=== PATIENT | female | born 1995 | race Caucasian/White ===

== ENCOUNTER → 2016-12-05 | Outpatient (REF) | payer BC, OTHER | LOC: M LAB REF 13:20 | PROVIDERS: ATTEND Advanced Practice Midwife | DX: Z34.03 Encounter for supervision of normal first pregnancy, third trimester (principal) ==

== ENCOUNTER 2016-12-27 02:05 | Inpatient (IN) | payer BC, OTHER ==
[2016-12-27] VITALS (41 sets, daily range): BP systolic 89–142; BP diastolic 50–93
[~2016-12-27] VITALS: Ht 160 cm; Wt 72.0 kg
[2016-12-27] MEDS ORDERED: LR 1,000 ML IV SCH (02:46)
[2016-12-27 02:59] LABS: MEAN CORPUSCULAR HEMOGLOBIN 30.1 pg (27.0-33.0); MEAN CORPUSCULAR HGB CONC 34.1 g/dl (32.0-36.5); MEAN CORPUSCULAR VOLUME 88.2 fl (80.0-96.0); RED CELL DISTRIBUTION WIDTH 13.3 % (11.5-14.5); WHITE BLOOD COUNT 18.3 K/mm3 (4.0-10.0)
[2016-12-27] MEDS ORDERED: FENTANYL 2MCG/ML ROPIVACAINE 0.2% NACL 250 ML CADD As Ordered ONE (03:02)
[2016-12-27] MEDS ORDERED: OXYTOCIN DRIP 30 UNITS in APPROPRIATE DILUENT 1 EA IV SCH ×2 (05:15→08:41)
[2016-12-27 07:10] LABS: CORD GAS ABE V -5.3; CORD GAS HCO3 V 21.4 MEQ/L; CORD GAS O2 SAT V 55.6 %; CORD GAS PCO2 V 45.5 mmHg; CORD GAS PH V 7.29 UNITS; CORD GAS PO2 V 24.3 mmHg; CORD GAS SBC V 18.9 MEQ/L; CORD GAS TCO2 V 22.8 MEQ/L
[2016-12-27 07:11] LABS: CORD GAS ABE A -8.3; CORD GAS HCO3 A 18.8 MEQ/L; CORD GAS O2 SAT A 43.3 %; CORD GAS PCO2 A 43.9 mmHg; CORD GAS PH A 7.249 UNITS; CORD GAS PO2 A 21.3 mmHg; CORD GAS SBC A 16.6 MEQ/L; CORD GAS TCO2 A 20.1 MEQ/L
--- NOTE | 2016-12-27 07:41 | HPE ---
DATE OF ADMISSION: 12/27/2016 REASON FOR ADMISSION: Labor. HISTORY OF PRESENT ILLNESS: This patient is a 21-year-old, 1, who presents at 39 weeks 5 days estimated gestational age by a first trimester ultrasound with complaints of contraction. She reports contractions started early during the night and has increased in intensity and frequency. She reports active movement. Denies any vaginal bleeding or leakage of fluid. Her course has been unremarkable. She initiated care in the first trimester and has been appropriate throughout. PAST MEDICAL HISTORY: None. PAST SURGICAL HISTORY: None. POST OBSTETRIC HISTORY: She is 1. MEDICATIONS: vitamins. ALLERGIES: She has no known drug allergies. PHYSICAL EXAMINATION: VITAL SIGNS: Stable. She is afebrile. She is a category I heart rate tracing with contractions on tocometer. GENERAL APPEARANCE: She is well appearing with no acute distress. LUNGS: Clear to auscultation bilaterally. CARDIOVASCULAR: Heart regular rate and rhythm. ABDOMEN: Soft. Gravid, nontender. Estimated weight 3500 grams. CERVICAL EXAM: She is 4 to 5 cm dilated, 100% effaced, -2 station. LABS: Blood type is A positive, antibody screen negative. Rubella immune, RPR nonreactive, hepatitis surface antigen is negative, HIV is negative, hepatitis C is nonreactive, Chlamydia and gonorrhea screens were negative. She had a normal 1-hour Glucola. She is GBS negative. ASSESSMENT: 1. This patient is a 21-year-old, 1, who presents at 39 weeks 5 days estimated gestational age for active labor. 2. Reassuring status. PLAN: 1. Admit to labor and delivery. CBC, RPR, type and screen. 2. The patient is a good candidate for an epidural. 3. Spontaneous vaginal delivery.
--- NOTE | 2016-12-27 07:54 | DN ---
DATE OF DELIVERY: 12/27/2016 TIME OF : 0644 SCORES: 9 and 9. GENDER: Male. WEIGHT: 7 pounds 13 ounces or 3550 grams. ANESTHESIA: Epidural. COUNTS: Five laparotomy sponges accounted for prior to and after delivery. Two sharps removed from the delivery field. CORD GASES: 7.24, 7.29 with base excesses of -8.3, -5.3. DELIVERY NOTE: On the December at 0644 Ms. Lopez a 21-year-old 1, now para 1 had a spontaneous vaginal delivery of a live born male infant. scores 9 and 9, weight 7 pounds 13 ounces at 3550 grams. Head was delivered CHAU over intact peritoneum followed by delivery of a right anterior shoulder, left posterior shoulder, and corpus. Cord was clamped times two and was cut by the father of the baby. The baby was handed to his mom with a good cry. Cord blood gas was obtained. Placenta was then drained and delivered grossly intact. A premix bas of 500 mL of normal saline with 30 units of Pitocin was then bolused along with uterine massage until the uterus was firm. Upon inspection the cervix, vagina, and perineum was grossly intact. Mom and baby recovering in stable condition. The couple decided to name their son, Jeremy.
[2016-12-27] MEDS ORDERED: diphenhydrAMINE INJ 50MG/ML VIAL (J1200) IV PRN (08:00)
[2016-12-27] MEDS ORDERED: REFRIGERATOR IV KEYS XX PRN (08:00)
[2016-12-27] MEDS ORDERED: LACTATED RINGER'S 1000 ML IV PRN (08:00)
[2016-12-27] MEDS ORDERED: EPIDURAL COMMENT XX SCH (08:00)
[2016-12-27] MEDS ORDERED: ePHEDrine SULFATE 25 MG/5 ML(5MG/ML) SYRINGE IV PRN (08:00)
[2016-12-27] MEDS ORDERED: EPIDURAL/PCA KEYS XX PRN (08:00)
[2016-12-27] MEDS ORDERED: FENTANYL/ROPIVACAINE/NACL CADD 250 ML EPIDURAL SCH (08:00)
[2016-12-27] MEDS ORDERED: ONDANSETRON 4MG/2ML VIAL (J2405) IV PRN (08:00)
[2016-12-27] MEDS ORDERED: NALOXONE INJ 0.4 MG/1 ML VIAL (J2310) IV PRN (08:00)
[2016-12-27] MEDS ORDERED: DOCUSATE SODIUM 100 MG CAP PO PRN (08:45)
[2016-12-27] MEDS ORDERED: MEASLES,MUMPS,RUBELLA VACCINE INJ (MMR-II) (90707) SC SCH (08:45)
[2016-12-27] MEDS ORDERED: RHOGAM 300 MCG (1500 IU) INJ (J2790) IM SCH (08:45)
[2016-12-27] MEDS ORDERED: METHYLERGONOVINE MALEATE 0.2 MG TAB PO PRN (08:45)
[2016-12-27] MEDS ORDERED: DIBUCAINE 1% OINTMENT 30GM TOP PRN (08:45)
[2016-12-27] MEDS ORDERED: ACETAMINOPHEN 500 MG TAB PO PRN (08:45)
[2016-12-27] MEDS ORDERED: IBUPROFEN 800 MG TAB PO PRN (08:45)
[2016-12-27] MEDS: PRENATAL VITAMIN TAB PO SCH (09:00)
[2016-12-28 05:48] VITALS: BP 106/70
[2016-12-28] MEDS: PRENATAL VITAMIN TAB PO SCH (07:34)
[2016-12-28 18:02] VITALS: BP 121/72
[2016-12-29 06:14] VITALS: BP 108/59
[2016-12-29] MEDS: PRENATAL VITAMIN TAB PO SCH (08:51)
[2016-12-29] MEDS ORDERED: ACET50TA PO (09:43)
[2016-12-29] MEDS ORDERED: PRENTAB9 PO (09:43)
[2016-12-29] MEDS ORDERED: IBUP-1114 PO (09:43)
== END 2016-12-29 13:45 | disposition home or self-care (01) | DRG 560 ==
LOC: M LDO 02:05 → M LDI 02:22 → M OBS 09:52
PROVIDERS: ADMIT Obstetrics & Gynecology; ATTEND Obstetrics & Gynecology
PROC: 10E0XZZ Delivery of Products of Conception, External Approach (ICD-10-PCS; principal; 2016-12-27)
DX: O80 Encounter for full-term uncomplicated delivery (principal); Z37.0 Single live birth; Z3A.39 39 weeks gestation of pregnancy

== ENCOUNTER → 2017-03-30 | Outpatient (REF) | payer BC ==
[~2017-03-30] MED LIST: ACET50TA PO; IBUP-1114 PO; PRENTAB9 PO
[2017-03-30 19:17] LABS: MEAN CORPUSCULAR HEMOGLOBIN 32.3 pg (27.0-33.0); MEAN CORPUSCULAR HGB CONC 33.7 g/dl (32.0-36.5); MEAN CORPUSCULAR VOLUME 95.8 fl (80.0-96.0); RED CELL DISTRIBUTION WIDTH 11.9 % (11.5-14.5); WHITE BLOOD COUNT 7.1 K/mm3 (4.0-10.0)
[2017-03-30 19:33] LABS: ALBUMIN 4.2 GM/DL (3.2-5.2); ANION GAP 9 MEQ/L (8-16); BLOOD UREA NITROGEN 8 MG/DL (7-18); CALCIUM LEVEL 8.8 MG/DL (8.5-10.1); CARBON DIOXIDE LEVEL 27 MEQ/L (21-32); CHLORIDE LEVEL 105 MEQ/L (98-107); CREATININE FOR GFR 0.86 MG/DL (0.55-1.02); GLOMERULAR FILTRATION RATE > 60.0 (>60); GLUCOSE, FASTING 81 MG/DL (70-105); PHOSPHORUS LEVEL 3.3 MG/DL (2.5-4.9); POTASSIUM SERUM 3.8 MEQ/L (3.5-5.1); SODIUM LEVEL 141 MEQ/L (136-145)
[2017-03-30 21:07] LABS: ERYTHROCYTE SEDIMENTATION RATE 6 mm/hr (0-20)
[2017-03-30 21:38] LABS: EOSINOPHILS 4 % (0-5)
== END ==
LOC: M LABWUC 18:47
PROVIDERS: ATTEND Physician Assistant
DX: R21 Rash and other nonspecific skin eruption (principal)

== ENCOUNTER → 2025-03-29 | Outpatient (REF) | payer OTHER ==
[~2025-03-29] MED LIST changes: -ACET50TA PO; +MAPA500T2 PO
[2025-03-29 17:07] LABS: IMMUNOGLOBULIN A 97.8 MG/DL (40-350)
== END ==
LOC: M LAB REF 12:18
PROVIDERS: ATTEND Internal Medicine
DX: R19.7 Diarrhea, unspecified (principal); D64.9 Anemia, unspecified